=== PATIENT | male | born 1985 | race Caucasian/White ===

== ENCOUNTER 2021-01-25 15:17 | Emergency (ER) | payer MEDICAID ==
[~2021-01-25] VITALS: Ht 154.9 cm; Wt 138.3 kg
[2021-01-25 15:17] VITALS: BP_SYST 158
[2021-01-25] MEDS ORDERED: cefTRIAXone 1 GM in LIDOCAINE 1%, 20 ML MDV 2.1 ML IM ONE (15:30)
[2021-01-25] MEDS ORDERED: IBUP-1969 PO (16:06)
[2021-01-25] MEDS ORDERED: CEPH250C PO (16:06)
[2021-01-25 16:33] VITALS: BP_SYST 150
== END 2021-01-25 16:33 ==
LOC: SED 15:17
DX: L03.113 Cellulitis of right upper limb (principal); Z79.899 Other long term (current) drug therapy
CPT/HCPCS: 73130; 96372; 99283; J0696; J2001

== ENCOUNTER 2023-10-22 21:04 | Emergency (ER) | payer OTHER, MEDICAID ==
[~2023-10-22] VITALS: Ht 180.3 cm; Wt 102.1 kg
[~2023-10-22 21:04] MED LIST: CEPH250C PO; IBUP-1969 PO
[2023-10-22 21:48] VITALS: BP_SYST 126; PULSE 76; RESP 19; TEMP 97.8; O2SAT 98
[2023-10-22] MEDS ORDERED: KETOROLAC TROMETHAMINE 60 MG/2 ML VIAL IM ONE (23:15)
[2023-10-23] MEDS ORDERED: IBUP-1971 PO (00:23)
[2023-10-23 00:28] VITALS: BP_SYST 126; PULSE 76; RESP 19; TEMP 97.8; O2SAT 98
== END 2023-10-23 00:28 | disposition home or self-care (01) ==
LOC: SED 21:04
DX: S13.8XXA Sprain of joints and ligaments of other parts of neck, initial encounter (principal); R03.0 Elevated blood-pressure reading, without diagnosis of hypertension; Z79.899 Other long term (current) drug therapy; Z79.2 Long term (current) use of antibiotics; V89.2XXA Person injured in unspecified motor-vehicle accident, traffic, initial encounter; Y93.89 Activity, other specified; Y92.89 Other specified places as the place of occurrence of the external cause; Y99.8 Other external cause status
CPT/HCPCS: 99282; J1885